=== PATIENT | male | born 1965 | race Caucasian/White ===

== ENCOUNTER 2018-01-18 11:01 | Inpatient (IN) | payer MEDICAID, OTHER ==
[~2018-01-18] VITALS: Ht 170.2 cm; Wt 91.7 kg
[2018-01-18 12:18] LABS: PH, VENOUS 7.349 pH (7.320-7.420)
[2018-01-18 12:20] LABS: FIO2 ROOM AIR %
[2018-01-18 12:22] LABS: BASOPHILS # (AUTO) 0.03 x10^3/uL (0-0.1); BASOPHILS % (AUTO) 0 % (0-1); EOSINOPHILS % (AUTO) 1 % (1-7); LYMPHOCYTES # (AUTO) 1.02 x10^3/uL (1-3.4); LYMPHOCYTES % (AUTO) 8 % (22-44); MD NO; MEAN CORPUSCULAR HEMOGLOBIN 31.1 pg (27.5-34.5); MEAN CORPUSCULAR HGB CONC 35.4 g/dL (33.2-36.2); MEAN CORPUSCULAR VOLUME 87.9 fL (81-97); MEAN PLATELET VOLUME 9.9 fL (7.4-10.4); MONOCYTES # (AUTO) 0.62 x10^3/uL (0.2-0.8); MONOCYTES % (AUTO) 5 % (2-9); NEUTROPHILS # (AUTO) 11.85 x10^3/uL (1.8-6.8); NEUTROPHILS % (AUTO) 87 % (42-75); PLATELET COUNT 261 x10^3/uL (130-400); RED BLOOD COUNT 4.39 x10^6/uL (4.38-5.82); RED CELL DISTRIBUTION WIDTH 14.1 % (9.4-14.8)
[2018-01-18 12:29] LABS: ALANINE AMINOTRANSFERASE 15 U/L (12-78); ALBUMIN 3.1 g/dL (3.4-5.0); ANION GAP 9 mmol/L (5-15); CALCIUM 8.9 mg/dL (8.5-10.1); CHLORIDE 105 mmol/L (98-107); CREATININE 2.53 mg/dL (0.7-1.3)
[2018-01-18 12:31] LABS: ALKALINE PHOSPHATASE 141 U/L (45-117); BILIRUBIN,TOTAL 0.6 mg/dL (0.2-1.0); TOTAL PROTEIN 8.5 g/dL (6.4-8.2)
[2018-01-18 12:58] LABS: ACETONE, SERUM Negative (Negative)
[2018-01-18] MEDS ORDERED: SODIUM CHLORIDE FLUSH 10ML SYR IVF PRN (13:00)
[2018-01-18] MEDS ORDERED: CEFTRIAXONE PMX 1GM/50ML 50 ML IVPB ONE (13:00)
[2018-01-18] MEDS ORDERED: CEFTRIAXONE PMX 1GM/50ML 50 ML ONE (13:24)
[2018-01-18] MEDS ORDERED: ATOR40TA78 PO (14:11)
[2018-01-18] MEDS ORDERED: AMLO5TAB2 PO (14:11)
[2018-01-18] MEDS ORDERED: LOSA50TA6 PO (14:11)
[2018-01-18] MEDS ORDERED: ESOM20CA PO (14:11)
[2018-01-18] MEDS ORDERED: ONDANSETRON 2MG/ML, 2ML ONE (15:59)
[2018-01-18] MEDS ORDERED: MORPHINE SULFATE 4 MG/ML, 1ML ONE (15:59)
[2018-01-18] MEDS ORDERED: ONDANSETRON 2MG/ML, 2ML IVPush ONE (16:00)
[2018-01-18] MEDS ORDERED: MORPHINE SULFATE 4 MG/ML, 1ML IVPush PRN (16:00)
[2018-01-18] MEDS ORDERED: hydrALAzine 20 MG/ML, 1ML IVPush PRN (16:30)
[2018-01-18] MEDS ORDERED: ONDANSETRON 2MG/ML, 2ML IVPush PRN (16:30)
[2018-01-18] MEDS ORDERED: ACETAMINOPHEN 325 MG TABLET PO PRN (16:30)
[2018-01-18 17:16] LABS: HCT (SEDRATE) 38.6 % (39.2-51.8)
[2018-01-18 17:36] LABS: HEMOGLOBIN A1C 11.3 % (4.2-6.3)
[2018-01-18] MEDS: SODIUM CHLORIDE 0.9% 1,000 ML IV SCH (17:52)
[2018-01-18] MEDS: HEPARIN 5,000 UNITS/ML, 1ML SQ SCH (18:00)
[2018-01-18] MEDS: OXYcodone IR 5MG TABLET PO PRN (18:08)
[2018-01-18] MEDS: INSULIN LISPRO 100 UNITS/ML, PEN SQ-INSULIN SCH ×2 (18:36→21:15)
[2018-01-18] MEDS: AMPICILLIN/SULBACTAM 3 GM in SODIUM CHLORIDE 0.9% 100 ML IV SCH (18:36)
[2018-01-18 19:19] VITALS: BP 150/87
[2018-01-18] MEDS: ATORVASTATIN 40 MG TABLET PO SCH (21:08)
[2018-01-18 22:24] LABS: CHLORIDE,URINE RANDOM 43 mmol/L; POTASSIUM,URINE RANDOM 36 mmol/L; SODIUM,URINE RANDOM 30 mmol/L
[2018-01-18 22:52] LABS: OSMOLALITY,URINE 498 mOsm/kg (500-850)
[2018-01-19] MEDS: HEPARIN 5,000 UNITS/ML, 1ML SQ SCH ×3 (01:42→17:36)
[2018-01-19 01:54] VITALS: BP 114/74
[2018-01-19] MEDS: SODIUM CHLORIDE 0.9% 1,000 ML IV SCH (03:36)
[2018-01-19 04:55] LABS: MEAN CORPUSCULAR HEMOGLOBIN 29.3 pg (27.5-34.5); MEAN CORPUSCULAR HGB CONC 33.2 g/dL (33.2-36.2); MEAN CORPUSCULAR VOLUME 88.1 fL (81-97); MEAN PLATELET VOLUME 10.1 fL (7.4-10.4); PLATELET COUNT 240 x10^3/uL (130-400); RED BLOOD COUNT 3.84 x10^6/uL (4.38-5.82); RED CELL DISTRIBUTION WIDTH 13.7 % (9.4-14.8)
[2018-01-19 05:02] LABS: ANION GAP 8 mmol/L (5-15); CALCIUM 8.2 mg/dL (8.5-10.1); CHLORIDE 106 mmol/L (98-107); CHOLESTEROL, TOTAL 157 mg/dL (140-239); CREATININE 2.46 mg/dL (0.7-1.3); TRIGLYCERIDES 108 mg/dL (50-200); VLDL CHOLESTEROL 22 mg/dL (0-25)
[2018-01-19 05:05] LABS: CHOL/HDL RATIO 4.6; HDL CHOL % 22 % (26-37); HDL CHOLESTEROL (DIRECT) 34 mg/dL (40-60); LDL CHOLESTEROL,CALCULATED 101 mg/dL (54-169)
[2018-01-19 05:39] LABS: BASOPHILS # (AUTO) 0.02 x10^3/uL (0-0.1); BASOPHILS % (AUTO) 0 % (0-1); EOSINOPHILS # (AUTO) 0.06 x10^3/uL (0-0.4); EOSINOPHILS % (AUTO) 0 % (1-7); LYMPHOCYTES # (AUTO) 1.52 x10^3/uL (1-3.4); LYMPHOCYTES % (AUTO) 9 % (22-44); MD SCAN; MONOCYTES % (AUTO) 9 % (2-9); NEUTROPHILS # (AUTO) 13.27 x10^3/uL (1.8-6.8); NEUTROPHILS % (AUTO) 81 % (42-75)
[2018-01-19] MEDS: AMPICILLIN/SULBACTAM 3 GM in SODIUM CHLORIDE 0.9% 100 ML IV SCH (06:11)
[2018-01-19] MEDS: INSULIN LISPRO 100 UNITS/ML, PEN SQ-INSULIN SCH ×4 (07:04→21:25)
[2018-01-19 07:30] VITALS: BP 122/70
[2018-01-19] MEDS: TEMPLATE NON-FORMULARY MED. (Esomeprazole Magnesium** (Nexium**) 20 MG) PO SCH (08:07)
[2018-01-19] MEDS: LOSARTAN 50MG TABLET PO SCH (09:03)
[2018-01-19] MEDS: AMLODIPINE 5 MG TABLET PO SCH (09:03)
[2018-01-19] MEDS: OXYcodone IR 5MG TABLET PO PRN (11:46)
[2018-01-19] MEDS: PIPERACILLIN/TAZO/PMX 3.375GM 50 ML IV SCH ×2 (12:09→20:51)
[2018-01-19 13:02] VITALS: BP 126/76
[2018-01-19] MEDS ORDERED: FENTANYL PF 100 MCG/2ML ONE (18:15)
[2018-01-19] MEDS ORDERED: PROPOFOL 10 MG/ML, 20ML ONE (18:23)
[2018-01-19] MEDS ORDERED: SUCCINYLCHOLINE 20 MG/ML, 10ML ONE (18:23)
[2018-01-19] MEDS ORDERED: METOCLOPRAMIDE 5 MG/ML, 2ML ONE (18:23)
[2018-01-19] MEDS ORDERED: ONDANSETRON 2MG/ML, 2ML ONE (18:23)
[2018-01-19] MEDS ORDERED: ROCURONIUM 10 MG/ML,10ML ONE (18:23)
[2018-01-19] MEDS ORDERED: OXYcodone 5 MG/5 ML ORAL.SOL UDC PO PRN (19:00)
[2018-01-19] MEDS ORDERED: hydrALAzine 20 MG/ML, 1ML IV PRN (19:00)
[2018-01-19] MEDS ORDERED: LABETALOL 5MG/ML, 20ML IV PRN (19:00)
[2018-01-19] MEDS ORDERED: FENTANYL PF 100 MCG/2ML IV PRN (19:00)
[2018-01-19] MEDS ORDERED: ONDANSETRON 2MG/ML, 2ML IVPush PRN (19:00)
[2018-01-19] MEDS ORDERED: ACETAMINOPHEN 325 MG TABLET PO PRN (19:00)
[2018-01-19] MEDS ORDERED: PROMETHAZINE 12.5 MG SUPP PR PRN (19:00)
[2018-01-19] MEDS ORDERED: HYDROmorphone 1 MG/ML, 1ML IV PRN (19:00)
[2018-01-19] MEDS ORDERED: morphine SULFATE 10 MG/ML, 1ML IV PRN (19:00)
[2018-01-19] MEDS ORDERED: ACETAMINOPHEN 650 MG/20.3 ML UDC ONE (19:11)
[2018-01-19] MEDS ORDERED: OXYcodone 5 MG/5 ML ORAL.SOL UDC ONE (19:11)
[2018-01-19 20:03] VITALS: BP 124/74
[2018-01-19] MEDS: ATORVASTATIN 40 MG TABLET PO SCH (20:51)
[2018-01-19] MEDS: INSULIN GLARGINE 100 UNITS/ML, PEN SQ-INSULIN SCH (21:25)
[2018-01-20 01:13] VITALS: BP 127/80
[2018-01-20] MEDS: HEPARIN 5,000 UNITS/ML, 1ML SQ SCH ×3 (01:45→17:29)
[2018-01-20] MEDS: PIPERACILLIN/TAZO/PMX 3.375GM 50 ML IV SCH ×3 (05:17→21:39)
[2018-01-20 05:57] LABS: BASOPHILS # (AUTO) 0.03 x10^3/uL (0-0.1); BASOPHILS % (AUTO) 0 % (0-1); EOSINOPHILS # (AUTO) 0.17 x10^3/uL (0-0.4); EOSINOPHILS % (AUTO) 1 % (1-7); LYMPHOCYTES # (AUTO) 1.58 x10^3/uL (1-3.4); LYMPHOCYTES % (AUTO) 13 % (22-44); MD NO; MEAN CORPUSCULAR HEMOGLOBIN 29.8 pg (27.5-34.5); MEAN CORPUSCULAR HGB CONC 33.8 g/dL (33.2-36.2); MEAN CORPUSCULAR VOLUME 88.4 fL (81-97); MEAN PLATELET VOLUME 9.4 fL (7.4-10.4); MONOCYTES # (AUTO) 1.03 x10^3/uL (0.2-0.8); MONOCYTES % (AUTO) 9 % (2-9); NEUTROPHILS # (AUTO) 9.37 x10^3/uL (1.8-6.8); NEUTROPHILS % (AUTO) 77 % (42-75); PLATELET COUNT 243 x10^3/uL (130-400); RED BLOOD COUNT 3.73 x10^6/uL (4.38-5.82); RED CELL DISTRIBUTION WIDTH 13.9 % (9.4-14.8)
[2018-01-20 06:06] LABS: ANION GAP 9 mmol/L (5-15); CALCIUM 8.4 mg/dL (8.5-10.1); CHLORIDE 107 mmol/L (98-107)
[2018-01-20 06:10] LABS: CREATININE 2.25 mg/dL (0.7-1.3)
[2018-01-20 06:48] VITALS: BP 133/77
[2018-01-20] MEDS: INSULIN LISPRO 100 UNITS/ML, PEN SQ-INSULIN SCH ×4 (07:00→21:39)
[2018-01-20] MEDS ORDERED: AMOX1TAB64 PO (07:41)
[2018-01-20] MEDS ORDERED: ACET325T14 PO (07:41)
[2018-01-20] MEDS: AMLODIPINE 5 MG TABLET PO SCH (08:11)
[2018-01-20] MEDS: LOSARTAN 50MG TABLET PO SCH (08:12)
[2018-01-20] MEDS: TEMPLATE NON-FORMULARY MED. (Esomeprazole Magnesium** (Nexium**) 20 MG) PO SCH (08:12)
[2018-01-20] MEDS: DOCUSATE 100 MG CAPSULE PO PRN (08:21)
[2018-01-20 12:26] VITALS: BP 128/72
[2018-01-20 19:38] VITALS: BP 142/79
[2018-01-20] MEDS: ATORVASTATIN 40 MG TABLET PO SCH (21:39)
[2018-01-20] MEDS: INSULIN GLARGINE 100 UNITS/ML, PEN SQ-INSULIN SCH (21:40)
[2018-01-21] MEDS: HEPARIN 5,000 UNITS/ML, 1ML SQ SCH ×3 (02:05→17:16)
[2018-01-21] MEDS: OXYcodone IR 5MG TABLET PO PRN ×4 (02:05→23:42)
[2018-01-21 02:10] VITALS: BP 142/77
[2018-01-21] MEDS: PIPERACILLIN/TAZO/PMX 3.375GM 50 ML IV SCH ×3 (05:06→21:23)
[2018-01-21 06:37] VITALS: BP 149/84
[2018-01-21] MEDS: INSULIN LISPRO 100 UNITS/ML, PEN SQ-INSULIN SCH ×4 (08:32→21:23)
[2018-01-21] MEDS: TEMPLATE NON-FORMULARY MED. (Esomeprazole Magnesium** (Nexium**) 20 MG) PO SCH (08:32)
[2018-01-21] MEDS: LOSARTAN 50MG TABLET PO SCH (08:33)
[2018-01-21] MEDS: AMLODIPINE 5 MG TABLET PO SCH (08:33)
[2018-01-21 15:37] VITALS: BP 130/75
[2018-01-21] MEDS: DOCUSATE 100 MG CAPSULE PO PRN (17:42)
[2018-01-21 19:18] VITALS: BP 145/79
[2018-01-21] MEDS: ATORVASTATIN 40 MG TABLET PO SCH (21:23)
[2018-01-21] MEDS: INSULIN GLARGINE 100 UNITS/ML, PEN SQ-INSULIN SCH (21:24)
[2018-01-22 01:42] VITALS: BP 118/64
[2018-01-22] MEDS: HEPARIN 5,000 UNITS/ML, 1ML SQ SCH ×3 (02:28→18:43)
[2018-01-22] MEDS: PIPERACILLIN/TAZO/PMX 3.375GM 50 ML IV SCH ×3 (04:56→23:01)
[2018-01-22] MEDS: INSULIN LISPRO 100 UNITS/ML, PEN SQ-INSULIN SCH ×4 (07:00→20:06)
[2018-01-22] MEDS: AMLODIPINE 5 MG TABLET PO SCH (07:54)
[2018-01-22] MEDS: LOSARTAN 50MG TABLET PO SCH (07:54)
[2018-01-22] MEDS: TEMPLATE NON-FORMULARY MED. (Esomeprazole Magnesium** (Nexium**) 20 MG) PO SCH (07:54)
[2018-01-22 08:53] VITALS: BP 126/71
[2018-01-22] MEDS: DOCUSATE 100 MG CAPSULE PO PRN (10:44)
[2018-01-22 11:59] VITALS: BP 128/80
[2018-01-22 19:06] VITALS: BP 154/86
[2018-01-22] MEDS: ATORVASTATIN 40 MG TABLET PO SCH (20:05)
[2018-01-22] MEDS: INSULIN GLARGINE 100 UNITS/ML, PEN SQ-INSULIN SCH (20:06)
[2018-01-23] MEDS: HEPARIN 5,000 UNITS/ML, 1ML SQ SCH ×3 (02:36→18:21)
[2018-01-23 02:38] VITALS: BP 163/94
[2018-01-23 07:00] VITALS: BP 139/89
[2018-01-23] MEDS: PIPERACILLIN/TAZO/PMX 3.375GM 50 ML IV SCH ×3 (08:01→23:16)
[2018-01-23] MEDS: INSULIN LISPRO 100 UNITS/ML, PEN SQ-INSULIN SCH ×4 (08:01→20:35)
[2018-01-23] MEDS: LOSARTAN 50MG TABLET PO SCH (08:02)
[2018-01-23] MEDS: AMLODIPINE 5 MG TABLET PO SCH (08:02)
[2018-01-23] MEDS: OXYcodone IR 5MG TABLET PO PRN ×2 (08:12→18:48)
[2018-01-23] MEDS: TEMPLATE NON-FORMULARY MED. (Esomeprazole Magnesium** (Nexium**) 20 MG) PO SCH (08:16)
[2018-01-23] MEDS ORDERED: MAGNESIUM CITRATE 300ML ORAL SOL PO ONE (12:00)
[2018-01-23 12:45] VITALS: BP 134/84
[2018-01-23 18:34] VITALS: BP 122/78
[2018-01-23] MEDS: SENNA/DOCUSATE TABLET PO SCH (20:34)
[2018-01-23] MEDS: INSULIN GLARGINE 100 UNITS/ML, PEN SQ-INSULIN SCH (20:34)
[2018-01-23] MEDS: ATORVASTATIN 40 MG TABLET PO SCH (20:34)
[2018-01-24 01:19] VITALS: BP 147/84
[2018-01-24] MEDS: HEPARIN 5,000 UNITS/ML, 1ML SQ SCH ×3 (02:06→20:19)
[2018-01-24] MEDS: PIPERACILLIN/TAZO/PMX 3.375GM 50 ML IV SCH (06:35)
[2018-01-24 06:52] VITALS: BP 157/84
[2018-01-24] MEDS: INSULIN LISPRO 100 UNITS/ML, PEN SQ-INSULIN SCH ×4 (07:00→20:30)
[2018-01-24] MEDS: TEMPLATE NON-FORMULARY MED. (Esomeprazole Magnesium** (Nexium**) 20 MG) PO SCH (09:00)
[2018-01-24] MEDS: POLYETHYLENE GLYCOL 17 GM PACKET PO SCH (09:00)
[2018-01-24] MEDS: LOSARTAN 50MG TABLET PO SCH (09:34)
[2018-01-24] MEDS: SENNA/DOCUSATE TABLET PO SCH ×2 (09:34→20:19)
[2018-01-24] MEDS: AMLODIPINE 5 MG TABLET PO SCH (09:34)
[2018-01-24] MEDS: OXYcodone IR 5MG TABLET PO PRN (11:01)
[2018-01-24 12:32] VITALS: BP 152/87
[2018-01-24] MEDS ORDERED: PHARMACY INSTRUCTION MC PRN (14:30)
[2018-01-24] MEDS: CEFTRIAXONE 2 GM in SODIUM CHLORIDE 0.9% 50 ML IV SCH (15:39)
[2018-01-24 18:43] VITALS: BP 146/85
[2018-01-24] MEDS: ATORVASTATIN 40 MG TABLET PO SCH (20:19)
[2018-01-24] MEDS: INSULIN GLARGINE 100 UNITS/ML, PEN SQ-INSULIN SCH (20:30)
[2018-01-25 03:38] VITALS: BP 150/90
[2018-01-25] MEDS: HEPARIN 5,000 UNITS/ML, 1ML SQ SCH ×3 (03:42→20:51)
[2018-01-25 06:35] VITALS: BP 135/78
[2018-01-25] MEDS: INSULIN LISPRO 100 UNITS/ML, PEN SQ-INSULIN SCH ×4 (07:00→22:57)
[2018-01-25] MEDS: TEMPLATE NON-FORMULARY MED. (Esomeprazole Magnesium** (Nexium**) 20 MG) PO SCH (09:00)
[2018-01-25] MEDS: POLYETHYLENE GLYCOL 17 GM PACKET PO SCH (09:00)
[2018-01-25] MEDS: SENNA/DOCUSATE TABLET PO SCH ×2 (10:02→22:57)
[2018-01-25] MEDS: AMLODIPINE 5 MG TABLET PO SCH (10:02)
[2018-01-25] MEDS: LOSARTAN 50MG TABLET PO SCH (10:02)
[2018-01-25] MEDS: OXYcodone IR 5MG TABLET PO PRN (10:33)
[2018-01-25 12:56] VITALS: BP 151/82
[2018-01-25] MEDS: CEFTRIAXONE 2 GM in SODIUM CHLORIDE 0.9% 50 ML IV SCH (14:40)
[2018-01-25 20:00] VITALS: BP 148/83
[2018-01-25] MEDS: INSULIN GLARGINE 100 UNITS/ML, PEN SQ-INSULIN SCH (22:56)
[2018-01-25] MEDS: ATORVASTATIN 40 MG TABLET PO SCH (22:57)
[2018-01-26 02:00] VITALS: BP 125/73
[2018-01-26] MEDS: HEPARIN 5,000 UNITS/ML, 1ML SQ SCH ×3 (04:29→20:04)
[2018-01-26 06:50] VITALS: BP 150/82
[2018-01-26] MEDS: INSULIN LISPRO 100 UNITS/ML, PEN SQ-INSULIN SCH ×4 (07:00→21:27)
[2018-01-26] MEDS: POLYETHYLENE GLYCOL 17 GM PACKET PO SCH (08:16)
[2018-01-26] MEDS: LOSARTAN 50MG TABLET PO SCH (08:16)
[2018-01-26] MEDS: AMLODIPINE 5 MG TABLET PO SCH (08:16)
[2018-01-26] MEDS: SENNA/DOCUSATE TABLET PO SCH ×2 (08:16→21:28)
[2018-01-26] MEDS: TEMPLATE NON-FORMULARY MED. (Esomeprazole Magnesium** (Nexium**) 20 MG) PO SCH (08:17)
[2018-01-26 13:04] VITALS: BP 133/79
[2018-01-26] MEDS: CEFTRIAXONE 2 GM in SODIUM CHLORIDE 0.9% 50 ML IV SCH (13:47)
[2018-01-26 18:36] VITALS: BP 130/81
[2018-01-26] MEDS: ATORVASTATIN 40 MG TABLET PO SCH (21:28)
[2018-01-26] MEDS: INSULIN GLARGINE 100 UNITS/ML, PEN SQ-INSULIN SCH (21:28)
[2018-01-27 01:36] VITALS: BP 130/79
[2018-01-27] MEDS: HEPARIN 5,000 UNITS/ML, 1ML SQ SCH ×3 (04:14→21:11)
[2018-01-27 04:27] LABS: BASOPHILS # (AUTO) 0.03 x10^3/uL (0-0.1); BASOPHILS % (AUTO) 0 % (0-1); EOSINOPHILS # (AUTO) 0.14 x10^3/uL (0-0.4); EOSINOPHILS % (AUTO) 1 % (1-7); LYMPHOCYTES # (AUTO) 1.79 x10^3/uL (1-3.4); LYMPHOCYTES % (AUTO) 17 % (22-44); MD NO; MEAN CORPUSCULAR HEMOGLOBIN 29.4 pg (27.5-34.5); MEAN CORPUSCULAR HGB CONC 33.2 g/dL (33.2-36.2); MEAN CORPUSCULAR VOLUME 88.5 fL (81-97); MEAN PLATELET VOLUME 8.9 fL (7.4-10.4); MONOCYTES # (AUTO) 0.86 x10^3/uL (0.2-0.8); MONOCYTES % (AUTO) 8 % (2-9); NEUTROPHILS # (AUTO) 7.57 x10^3/uL (1.8-6.8); NEUTROPHILS % (AUTO) 73 % (42-75); PLATELET COUNT 324 x10^3/uL (130-400); RED BLOOD COUNT 4.06 x10^6/uL (4.38-5.82); RED CELL DISTRIBUTION WIDTH 13.7 % (9.4-14.8)
[2018-01-27 04:36] LABS: ANION GAP 6 mmol/L (5-15); CHLORIDE 105 mmol/L (98-107); CREATININE 2.08 mg/dL (0.7-1.3)
[2018-01-27 06:34] VITALS: BP 137/83
[2018-01-27] MEDS: INSULIN LISPRO 100 UNITS/ML, PEN SQ-INSULIN SCH ×4 (07:27→21:18)
[2018-01-27] MEDS ORDERED: TRAZODONE 100MG TABLET PO PRN (08:30)
[2018-01-27] MEDS: TEMPLATE NON-FORMULARY MED. (Esomeprazole Magnesium** (Nexium**) 20 MG) PO SCH (09:00)
[2018-01-27] MEDS: POLYETHYLENE GLYCOL 17 GM PACKET PO SCH (09:00)
[2018-01-27] MEDS: SENNA/DOCUSATE TABLET PO SCH ×2 (09:00→21:11)
[2018-01-27] MEDS: AMLODIPINE 5 MG TABLET PO SCH (09:35)
[2018-01-27] MEDS: LOSARTAN 50MG TABLET PO SCH (09:35)
[2018-01-27] MEDS: OXYcodone IR 5MG TABLET PO PRN (11:29)
[2018-01-27 14:49] VITALS: BP 113/64
[2018-01-27] MEDS: CEFTRIAXONE 2 GM in SODIUM CHLORIDE 0.9% 50 ML IV SCH (15:34)
[2018-01-27 19:11] VITALS: BP 125/79
[2018-01-27] MEDS: ATORVASTATIN 40 MG TABLET PO SCH (21:11)
[2018-01-27] MEDS: INSULIN GLARGINE 100 UNITS/ML, PEN SQ-INSULIN SCH (21:18)
[2018-01-27] MEDS ORDERED: MAGNESIUM CITRATE 300ML ORAL SOL PO ONE (21:30)
[2018-01-28 00:58] VITALS: BP 129/78
[2018-01-28] MEDS: HEPARIN 5,000 UNITS/ML, 1ML SQ SCH ×3 (04:13→21:14)
[2018-01-28] MEDS: INSULIN LISPRO 100 UNITS/ML, PEN SQ-INSULIN SCH ×4 (07:00→21:11)
[2018-01-28 08:17] VITALS: BP 146/87
[2018-01-28] MEDS: POLYETHYLENE GLYCOL 17 GM PACKET PO SCH (09:00)
[2018-01-28] MEDS: SENNA/DOCUSATE TABLET PO SCH ×2 (09:00→21:11)
[2018-01-28] MEDS: TEMPLATE NON-FORMULARY MED. (Esomeprazole Magnesium** (Nexium**) 20 MG) PO SCH (09:00)
[2018-01-28] MEDS: AMLODIPINE 5 MG TABLET PO SCH (09:54)
[2018-01-28] MEDS: LOSARTAN 50MG TABLET PO SCH (09:54)
[2018-01-28] MEDS: CEFTRIAXONE 2 GM in SODIUM CHLORIDE 0.9% 50 ML IV SCH (14:57)
[2018-01-28 15:23] VITALS: BP 126/78
[2018-01-28 15:37] VITALS: BP 113/70
[2018-01-28 18:49] VITALS: BP 121/73
[2018-01-28] MEDS: ATORVASTATIN 40 MG TABLET PO SCH (21:11)
[2018-01-28] MEDS: INSULIN GLARGINE 100 UNITS/ML, PEN SQ-INSULIN SCH (21:12)
[2018-01-29 01:21] VITALS: BP 130/82
[2018-01-29] MEDS: HEPARIN 5,000 UNITS/ML, 1ML SQ SCH ×3 (04:12→20:12)
[2018-01-29 06:40] VITALS: BP 143/80
[2018-01-29] MEDS: INSULIN LISPRO 100 UNITS/ML, PEN SQ-INSULIN SCH ×4 (07:00→20:12)
[2018-01-29] MEDS: SENNA/DOCUSATE TABLET PO SCH ×2 (07:42→20:13)
[2018-01-29] MEDS: AMLODIPINE 5 MG TABLET PO SCH (07:42)
[2018-01-29] MEDS: POLYETHYLENE GLYCOL 17 GM PACKET PO SCH (07:42)
[2018-01-29] MEDS: TEMPLATE NON-FORMULARY MED. (Esomeprazole Magnesium** (Nexium**) 20 MG) PO SCH (07:42)
[2018-01-29] MEDS: LOSARTAN 50MG TABLET PO SCH (07:44)
[2018-01-29] MEDS: OXYcodone IR 5MG TABLET PO PRN (08:50)
[2018-01-29 12:53] VITALS: BP 125/75
[2018-01-29] MEDS: CEFTRIAXONE 2 GM in SODIUM CHLORIDE 0.9% 50 ML IV SCH (14:37)
[2018-01-29 19:00] VITALS: BP 123/78
[2018-01-29] MEDS: ATORVASTATIN 40 MG TABLET PO SCH (20:12)
[2018-01-29] MEDS: INSULIN GLARGINE 100 UNITS/ML, PEN SQ-INSULIN SCH (20:13)
[2018-01-30 01:30] VITALS: BP 138/84
[2018-01-30] MEDS: HEPARIN 5,000 UNITS/ML, 1ML SQ SCH ×3 (04:16→20:26)
[2018-01-30 05:09] LABS: BASOPHILS # (AUTO) 0.01 x10^3/uL (0-0.1); BASOPHILS % (AUTO) 0 % (0-1); CHLORIDE 106 mmol/L (98-107); EOSINOPHILS # (AUTO) 0.17 x10^3/uL (0-0.4); EOSINOPHILS % (AUTO) 2 % (1-7); LYMPHOCYTES # (AUTO) 1.55 x10^3/uL (1-3.4); LYMPHOCYTES % (AUTO) 17 % (22-44); MD NO; MEAN CORPUSCULAR HEMOGLOBIN 29.6 pg (27.5-34.5); MEAN CORPUSCULAR HGB CONC 33.8 g/dL (33.2-36.2); MEAN CORPUSCULAR VOLUME 87.4 fL (81-97); MEAN PLATELET VOLUME 9.9 fL (7.4-10.4); MONOCYTES # (AUTO) 0.77 x10^3/uL (0.2-0.8); MONOCYTES % (AUTO) 8 % (2-9); NEUTROPHILS # (AUTO) 6.64 x10^3/uL (1.8-6.8); NEUTROPHILS % (AUTO) 73 % (42-75); PLATELET COUNT 360 x10^3/uL (130-400); RED BLOOD COUNT 3.93 x10^6/uL (4.38-5.82); RED CELL DISTRIBUTION WIDTH 13.9 % (9.4-14.8)
[2018-01-30 05:30] LABS: ANION GAP 7 mmol/L (5-15); CALCIUM 8.7 mg/dL (8.5-10.1); CREATININE 2.05 mg/dL (0.7-1.3)
[2018-01-30 05:31] LABS: ALANINE AMINOTRANSFERASE 24 U/L (12-78); ALBUMIN 2.4 g/dL (3.4-5.0); ALKALINE PHOSPHATASE 92 U/L (45-117); BILIRUBIN,TOTAL 0.2 mg/dL (0.2-1.0); TOTAL PROTEIN 7.7 g/dL (6.4-8.2)
[2018-01-30 06:30] VITALS: BP 140/84
[2018-01-30] MEDS: INSULIN LISPRO 100 UNITS/ML, PEN SQ-INSULIN SCH ×4 (06:30→20:26)
[2018-01-30 06:44] LABS: HCT (SEDRATE) 34.3 % (39.2-51.8)
[2018-01-30] MEDS: SENNA/DOCUSATE TABLET PO SCH ×2 (09:00→20:27)
[2018-01-30] MEDS: POLYETHYLENE GLYCOL 17 GM PACKET PO SCH (09:00)
[2018-01-30] MEDS: TEMPLATE NON-FORMULARY MED. (Esomeprazole Magnesium** (Nexium**) 20 MG) PO SCH (09:00)
[2018-01-30] MEDS: LOSARTAN 50MG TABLET PO SCH (10:05)
[2018-01-30] MEDS: AMLODIPINE 5 MG TABLET PO SCH (10:05)
[2018-01-30] MEDS: CEFTRIAXONE 2 GM in SODIUM CHLORIDE 0.9% 50 ML IV SCH (14:27)
[2018-01-30 14:51] VITALS: BP 119/79
[2018-01-30] MEDS: MAGNESIUM CITRATE 300ML ORAL SOL PO PRN (16:53)
[2018-01-30 20:25] VITALS: BP 134/85
[2018-01-30] MEDS: ATORVASTATIN 40 MG TABLET PO SCH (20:26)
[2018-01-30] MEDS: INSULIN GLARGINE 100 UNITS/ML, PEN SQ-INSULIN SCH (20:26)
[2018-01-31 00:24] VITALS: BP 128/78
[2018-01-31] MEDS: HEPARIN 5,000 UNITS/ML, 1ML SQ SCH ×3 (04:08→20:29)
[2018-01-31 06:57] VITALS: BP 120/78
[2018-01-31] MEDS: INSULIN LISPRO 100 UNITS/ML, PEN SQ-INSULIN SCH ×4 (07:57→20:30)
[2018-01-31] MEDS: AMLODIPINE 5 MG TABLET PO SCH (08:29)
[2018-01-31] MEDS: TEMPLATE NON-FORMULARY MED. (Esomeprazole Magnesium** (Nexium**) 20 MG) PO SCH (08:29)
[2018-01-31] MEDS: LOSARTAN 50MG TABLET PO SCH (08:29)
[2018-01-31] MEDS: SENNA/DOCUSATE TABLET PO SCH ×2 (08:29→20:30)
[2018-01-31] MEDS: POLYETHYLENE GLYCOL 17 GM PACKET PO SCH (08:30)
[2018-01-31 12:18] VITALS: BP 148/92
[2018-01-31] MEDS: CEFTRIAXONE 2 GM in SODIUM CHLORIDE 0.9% 50 ML IV SCH (15:16)
[2018-01-31 18:35] VITALS: BP 107/69
[2018-01-31] MEDS: INSULIN GLARGINE 100 UNITS/ML, PEN SQ-INSULIN SCH (20:30)
[2018-01-31] MEDS: ATORVASTATIN 40 MG TABLET PO SCH (20:30)
[2018-02-01 00:55] VITALS: BP 135/76
[2018-02-01] MEDS: HEPARIN 5,000 UNITS/ML, 1ML SQ SCH ×3 (04:35→20:20)
[2018-02-01 06:32] VITALS: BP 151/95
[2018-02-01] MEDS: TEMPLATE NON-FORMULARY MED. (Esomeprazole Magnesium** (Nexium**) 20 MG) PO SCH (07:56)
[2018-02-01] MEDS: INSULIN LISPRO 100 UNITS/ML, PEN SQ-INSULIN SCH ×4 (07:56→20:21)
[2018-02-01] MEDS: LOSARTAN 50MG TABLET PO SCH (07:57)
[2018-02-01] MEDS: AMLODIPINE 5 MG TABLET PO SCH (07:57)
[2018-02-01] MEDS: SENNA/DOCUSATE TABLET PO SCH ×2 (07:57→20:20)
[2018-02-01] MEDS: POLYETHYLENE GLYCOL 17 GM PACKET PO SCH (07:57)
[2018-02-01 12:00] VITALS: BP 137/93
[2018-02-01] MEDS: CEFTRIAXONE 2 GM in SODIUM CHLORIDE 0.9% 50 ML IV SCH (14:34)
[2018-02-01] MEDS: AMPICILLIN/SULBACTAM 3 GM in SODIUM CHLORIDE 0.9% 100 ML IV SCH ×2 (17:40→22:19)
[2018-02-01 18:45] VITALS: BP 124/76
[2018-02-01] MEDS: ATORVASTATIN 40 MG TABLET PO SCH (20:20)
[2018-02-01] MEDS: INSULIN GLARGINE 100 UNITS/ML, PEN SQ-INSULIN SCH (20:21)
[2018-02-02 00:49] VITALS: BP 121/75
[2018-02-02] MEDS: AMPICILLIN/SULBACTAM 3 GM in SODIUM CHLORIDE 0.9% 100 ML IV SCH ×4 (04:19→22:36)
[2018-02-02] MEDS: HEPARIN 5,000 UNITS/ML, 1ML SQ SCH ×3 (04:19→20:32)
[2018-02-02 06:37] VITALS: BP 136/80
[2018-02-02] MEDS: INSULIN LISPRO 100 UNITS/ML, PEN SQ-INSULIN SCH ×4 (07:40→20:33)
[2018-02-02] MEDS: TEMPLATE NON-FORMULARY MED. (Esomeprazole Magnesium** (Nexium**) 20 MG) PO SCH (07:41)
[2018-02-02] MEDS: SENNA/DOCUSATE TABLET PO SCH ×2 (09:07→20:32)
[2018-02-02] MEDS: AMLODIPINE 5 MG TABLET PO SCH (09:08)
[2018-02-02] MEDS: POLYETHYLENE GLYCOL 17 GM PACKET PO SCH (09:08)
[2018-02-02] MEDS: LOSARTAN 50MG TABLET PO SCH (09:08)
[2018-02-02 12:39] VITALS: BP 124/77
[2018-02-02 19:20] VITALS: BP 133/81
[2018-02-02] MEDS: INSULIN GLARGINE 100 UNITS/ML, PEN SQ-INSULIN SCH (20:32)
[2018-02-02] MEDS: ATORVASTATIN 40 MG TABLET PO SCH (20:32)
[2018-02-03 01:18] VITALS: BP 127/78
[2018-02-03] MEDS: AMPICILLIN/SULBACTAM 3 GM in SODIUM CHLORIDE 0.9% 100 ML IV SCH ×3 (04:06→20:29)
[2018-02-03] MEDS: HEPARIN 5,000 UNITS/ML, 1ML SQ SCH ×3 (04:06→20:30)
[2018-02-03 04:35] LABS: BASOPHILS # (AUTO) 0.04 x10^3/uL (0-0.1); BASOPHILS % (AUTO) 1 % (0-1); EOSINOPHILS # (AUTO) 0.14 x10^3/uL (0-0.4); EOSINOPHILS % (AUTO) 2 % (1-7); LYMPHOCYTES # (AUTO) 1.59 x10^3/uL (1-3.4); LYMPHOCYTES % (AUTO) 23 % (22-44); MD NO; MEAN CORPUSCULAR HEMOGLOBIN 29.3 pg (27.5-34.5); MEAN CORPUSCULAR HGB CONC 33.2 g/dL (33.2-36.2); MEAN CORPUSCULAR VOLUME 88.3 fL (81-97); MEAN PLATELET VOLUME 9.4 fL (7.4-10.4); MONOCYTES # (AUTO) 0.63 x10^3/uL (0.2-0.8); MONOCYTES % (AUTO) 9 % (2-9); NEUTROPHILS # (AUTO) 4.57 x10^3/uL (1.8-6.8); NEUTROPHILS % (AUTO) 66 % (42-75); PLATELET COUNT 395 x10^3/uL (130-400); RED BLOOD COUNT 3.94 x10^6/uL (4.38-5.82); RED CELL DISTRIBUTION WIDTH 14.1 % (9.4-14.8)
[2018-02-03 04:38] LABS: ANION GAP 5 mmol/L (5-15); CALCIUM 8.7 mg/dL (8.5-10.1); CHLORIDE 105 mmol/L (98-107)
[2018-02-03] MEDS: INSULIN LISPRO 100 UNITS/ML, PEN SQ-INSULIN SCH ×4 (07:00→20:42)
[2018-02-03 07:24] VITALS: BP 128/76
[2018-02-03] MEDS: SENNA/DOCUSATE TABLET PO SCH ×2 (08:23→20:30)
[2018-02-03] MEDS: AMLODIPINE 5 MG TABLET PO SCH (08:23)
[2018-02-03] MEDS: POLYETHYLENE GLYCOL 17 GM PACKET PO SCH (08:23)
[2018-02-03] MEDS: LOSARTAN 50MG TABLET PO SCH (08:23)
[2018-02-03] MEDS: TEMPLATE NON-FORMULARY MED. (Esomeprazole Magnesium** (Nexium**) 20 MG) PO SCH (08:24)
[2018-02-03] MEDS: INSULIN GLARGINE 100 UNITS/ML, PEN SQ-INSULIN SCH ×2 (08:29→20:42)
[2018-02-03 13:30] VITALS: BP 135/78
[2018-02-03 19:00] VITALS: BP 139/82
[2018-02-03] MEDS: ATORVASTATIN 40 MG TABLET PO SCH (20:30)
[2018-02-04 01:01] VITALS: BP 137/78
[2018-02-04] MEDS: HEPARIN 5,000 UNITS/ML, 1ML SQ SCH ×3 (03:51→20:11)
[2018-02-04] MEDS: AMPICILLIN/SULBACTAM 3 GM in SODIUM CHLORIDE 0.9% 100 ML IV SCH ×3 (03:51→20:05)
[2018-02-04] MEDS: ASPIRIN 81 MG TABLET EC PO SCH (05:48)
[2018-02-04] MEDS: INSULIN LISPRO 100 UNITS/ML, PEN SQ-INSULIN SCH ×4 (07:00→20:17)
[2018-02-04] MEDS: TEMPLATE NON-FORMULARY MED. (Esomeprazole Magnesium** (Nexium**) 20 MG) PO SCH (09:00)
[2018-02-04] MEDS: POLYETHYLENE GLYCOL 17 GM PACKET PO SCH (09:00)
[2018-02-04] MEDS: AMLODIPINE 5 MG TABLET PO SCH (09:13)
[2018-02-04] MEDS: LOSARTAN 50MG TABLET PO SCH (09:14)
[2018-02-04] MEDS: MAGNESIUM CITRATE 300ML ORAL SOL PO PRN (09:14)
[2018-02-04] MEDS: SENNA/DOCUSATE TABLET PO SCH ×2 (09:14→20:09)
[2018-02-04] MEDS: INSULIN GLARGINE 100 UNITS/ML, PEN SQ-INSULIN SCH ×2 (09:18→20:16)
[2018-02-04 09:23] VITALS: BP 146/90
[2018-02-04 14:26] VITALS: BP 135/83
[2018-02-04 18:43] VITALS: BP 129/74
[2018-02-04] MEDS: ATORVASTATIN 40 MG TABLET PO SCH (20:09)
[2018-02-05 03:13] VITALS: BP 121/74
[2018-02-05] MEDS: AMPICILLIN/SULBACTAM 3 GM in SODIUM CHLORIDE 0.9% 100 ML IV SCH ×3 (03:46→20:12)
[2018-02-05] MEDS: HEPARIN 5,000 UNITS/ML, 1ML SQ SCH ×3 (03:50→20:13)
[2018-02-05] MEDS: ASPIRIN 81 MG TABLET EC PO SCH (06:32)
[2018-02-05] MEDS: INSULIN LISPRO 100 UNITS/ML, PEN SQ-INSULIN SCH ×4 (07:00→20:21)
[2018-02-05 08:50] VITALS: BP 119/79
[2018-02-05] MEDS: TEMPLATE NON-FORMULARY MED. (Esomeprazole Magnesium** (Nexium**) 20 MG) PO SCH (09:00)
[2018-02-05] MEDS: INSULIN GLARGINE 100 UNITS/ML, PEN SQ-INSULIN SCH (09:00)
[2018-02-05] MEDS: SENNA/DOCUSATE TABLET PO SCH ×2 (09:21→20:22)
[2018-02-05] MEDS: AMLODIPINE 5 MG TABLET PO SCH (09:21)
[2018-02-05] MEDS: LOSARTAN 50MG TABLET PO SCH (09:22)
[2018-02-05] MEDS: POLYETHYLENE GLYCOL 17 GM PACKET PO SCH (09:22)
[2018-02-05 14:05] VITALS: BP 129/76
[2018-02-05 18:59] VITALS: BP 128/75
[2018-02-05] MEDS: ATORVASTATIN 40 MG TABLET PO SCH (20:12)
[2018-02-05] MEDS ORDERED: INSULIN GLARGINE 100 UNITS/ML, PEN SQ-INSULIN SCH (21:00)
[2018-02-06 00:29] VITALS: BP 125/74
[2018-02-06] MEDS: AMPICILLIN/SULBACTAM 3 GM in SODIUM CHLORIDE 0.9% 100 ML IV SCH ×2 (03:28→11:09)
[2018-02-06] MEDS: HEPARIN 5,000 UNITS/ML, 1ML SQ SCH ×2 (03:28→12:17)
[2018-02-06] MEDS: ASPIRIN 81 MG TABLET EC PO SCH (05:59)
[2018-02-06] MEDS: INSULIN LISPRO 100 UNITS/ML, PEN SQ-INSULIN SCH ×2 (07:00→11:13)
[2018-02-06] MEDS ORDERED: INSULIN GLARGINE 100 UNITS/ML, PEN SQ-INSULIN SCH (07:30)
[2018-02-06 08:05] VITALS: BP 148/96
[2018-02-06] MEDS: TEMPLATE NON-FORMULARY MED. (Esomeprazole Magnesium** (Nexium**) 20 MG) PO SCH (09:00)
[2018-02-06] MEDS: POLYETHYLENE GLYCOL 17 GM PACKET PO SCH (09:00)
[2018-02-06] MEDS: SENNA/DOCUSATE TABLET PO SCH (09:05)
[2018-02-06] MEDS: LOSARTAN 50MG TABLET PO SCH (09:05)
[2018-02-06] MEDS: AMLODIPINE 5 MG TABLET PO SCH (09:05)
[2018-02-06 12:31] VITALS: BP 130/81
[2018-02-06] MEDS ORDERED: AMOX1TAB64 PO (14:11)
[2018-02-06] MEDS ORDERED: SIMV20TA PO (14:15)
[2018-02-06] MEDS ORDERED: LACT1CAP24 PO (14:15)
[2018-02-06] MEDS ORDERED: ASPI-621 PO (14:21)
[2018-02-06] MEDS ORDERED: INSU100I13 SQ-INSULIN (14:21)
== END 2018-02-06 15:16 | disposition home or self-care (01) | DRG 853 ==
LOC: ED 12:57 → EDIP 12:58 → ED 13:10 → 3NW 14:38 → EDIP 14:45 → 3NW 14:49 → EDIP 15:04 → 3NW 17:27
PROVIDERS: ADMIT Internal Medicine; ATTEND Internal Medicine
PROC: 0Y6X0Z0 Detachment at Right 5th Toe, Complete, Open Approach (ICD-10-PCS; 2018-01-19)
PROC: 0JBQ0ZZ Excision of Right Foot Subcutaneous Tissue and Fascia, Open Approach (ICD-10-PCS; principal; 2018-01-19 19:15)
DX: A41.9 Sepsis, unspecified organism (principal); E43 Unspecified severe protein-calorie malnutrition; E11.22 Type 2 diabetes mellitus with diabetic chronic kidney disease; N18.4 Chronic kidney disease, stage 4 (severe); N17.9 Acute kidney failure, unspecified; L03.115 Cellulitis of right lower limb; E11.40 Type 2 diabetes mellitus with diabetic neuropathy, unspecified; E11.319 Type 2 diabetes mellitus with unspecified diabetic retinopathy without macular edema; E11.51 Type 2 diabetes mellitus with diabetic peripheral angiopathy without gangrene; E11.621 Type 2 diabetes mellitus with foot ulcer; E11.628 Type 2 diabetes mellitus with other skin complications; E11.65 Type 2 diabetes mellitus with hyperglycemia; E78.5 Hyperlipidemia, unspecified; H40.9 Unspecified glaucoma; S92.411A Displaced fracture of proximal phalanx of right great toe, initial encounter for closed fracture; I12.9 Hypertensive chronic kidney disease with stage 1 through stage 4 chronic kidney disease, or unspecified chronic kidney disease; K21.9 Gastro-esophageal reflux disease without esophagitis; L97.509 Non-pressure chronic ulcer of other part of unspecified foot with unspecified severity; S92.301A Fracture of unspecified metatarsal bone(s), right foot, initial encounter for closed fracture; Z79.4 Long term (current) use of insulin; Z83.3 Family history of diabetes mellitus; Z87.891 Personal history of nicotine dependence; Z89.421 Acquired absence of other right toe(s); Z79.899 Other long term (current) drug therapy; Z79.82 Long term (current) use of aspirin; Z68.31 Body mass index [BMI] 31.0-31.9, adult
CPT/HCPCS: 36415; 80048; 80053; 80061; 82010; 82436; 82570; 82803; 82962; 83036; 83605; 83735; 83935; 84100; 84133; 84300; 85025; 85651; 86140; 87040; 87070; 87075; 87076; 87176; 87205; 88305; 88311; 93922; 93926; 99285; J0295; J0696; J1644; J2405; J2543; J2704; J3010; J0330; J1815; J2765; J7030

== ENCOUNTER → 2018-02-08 | Outpatient (CLI) | payer MEDICAID, OTHER ==
[~2018-02-08] MED LIST: ACET325T14 PO; AMLO5TAB2 PO; AMOX1TAB64 PO; ASPI-621 PO; ATOR40TA78 PO; ESOM20CA PO; INSU100I13 SQ-INSULIN; LACT1CAP24 PO; LOSA50TA6 PO; SIMV20TA PO
== END | disposition home or self-care (01) ==
LOC: WOUND 13:22
PROVIDERS: ATTEND Internal Medicine
DX: E11.621 Type 2 diabetes mellitus with foot ulcer (principal); L97.511 Non-pressure chronic ulcer of other part of right foot limited to breakdown of skin; E11.622 Type 2 diabetes mellitus with other skin ulcer; L97.212 Non-pressure chronic ulcer of right calf with fat layer exposed; E78.2 Mixed hyperlipidemia; E11.319 Type 2 diabetes mellitus with unspecified diabetic retinopathy without macular edema; E11.40 Type 2 diabetes mellitus with diabetic neuropathy, unspecified; E11.39 Type 2 diabetes mellitus with other diabetic ophthalmic complication; H40.9 Unspecified glaucoma; E11.22 Type 2 diabetes mellitus with diabetic chronic kidney disease; I12.9 Hypertensive chronic kidney disease with stage 1 through stage 4 chronic kidney disease, or unspecified chronic kidney disease; N18.4 Chronic kidney disease, stage 4 (severe); K21.9 Gastro-esophageal reflux disease without esophagitis; Z89.421 Acquired absence of other right toe(s); Z87.891 Personal history of nicotine dependence; Z98.42 Cataract extraction status, left eye; Z79.4 Long term (current) use of insulin; Z79.899 Other long term (current) drug therapy; Z79.82 Long term (current) use of aspirin
CPT/HCPCS: 97605; 99215

== ENCOUNTER → 2018-02-10 | Outpatient (CLI) | payer MEDICAID | END | disposition home or self-care (01) | LOC: WOUND 10:11 | PROVIDERS: ATTEND Internal Medicine | DX: E11.621 Type 2 diabetes mellitus with foot ulcer (principal); L97.511 Non-pressure chronic ulcer of other part of right foot limited to breakdown of skin; K21.9 Gastro-esophageal reflux disease without esophagitis; E78.5 Hyperlipidemia, unspecified; E11.22 Type 2 diabetes mellitus with diabetic chronic kidney disease; I12.9 Hypertensive chronic kidney disease with stage 1 through stage 4 chronic kidney disease, or unspecified chronic kidney disease; N18.4 Chronic kidney disease, stage 4 (severe); E11.40 Type 2 diabetes mellitus with diabetic neuropathy, unspecified; E11.51 Type 2 diabetes mellitus with diabetic peripheral angiopathy without gangrene; E11.319 Type 2 diabetes mellitus with unspecified diabetic retinopathy without macular edema; E11.39 Type 2 diabetes mellitus with other diabetic ophthalmic complication; H40.9 Unspecified glaucoma; Z89.421 Acquired absence of other right toe(s); Z87.891 Personal history of nicotine dependence; Z79.4 Long term (current) use of insulin; Z99.2 Dependence on renal dialysis | CPT/HCPCS: 97605 ==

== ENCOUNTER → 2018-02-17 | Outpatient (CLI) | payer MEDICAID, OTHER | END | disposition home or self-care (01) | LOC: WOUND 09:20 | PROVIDERS: ATTEND Internal Medicine | DX: E11.621 Type 2 diabetes mellitus with foot ulcer (principal); L97.513 Non-pressure chronic ulcer of other part of right foot with necrosis of muscle; E11.22 Type 2 diabetes mellitus with diabetic chronic kidney disease; I12.9 Hypertensive chronic kidney disease with stage 1 through stage 4 chronic kidney disease, or unspecified chronic kidney disease; N18.4 Chronic kidney disease, stage 4 (severe); E78.5 Hyperlipidemia, unspecified; E11.51 Type 2 diabetes mellitus with diabetic peripheral angiopathy without gangrene; E11.39 Type 2 diabetes mellitus with other diabetic ophthalmic complication; H40.9 Unspecified glaucoma; E11.40 Type 2 diabetes mellitus with diabetic neuropathy, unspecified; K21.9 Gastro-esophageal reflux disease without esophagitis; Z79.899 Other long term (current) drug therapy; Z99.2 Dependence on renal dialysis; Z79.82 Long term (current) use of aspirin; Z89.421 Acquired absence of other right toe(s); Z98.42 Cataract extraction status, left eye; Z87.891 Personal history of nicotine dependence; Z79.4 Long term (current) use of insulin; Z68.31 Body mass index [BMI] 31.0-31.9, adult | CPT/HCPCS: 97605 ==

== ENCOUNTER → 2018-02-19 | Outpatient (CLI) | payer MEDICAID, OTHER | END | disposition home or self-care (01) | LOC: WOUND 09:48 | PROVIDERS: ATTEND Family Medicine | DX: E11.621 Type 2 diabetes mellitus with foot ulcer (principal); L97.513 Non-pressure chronic ulcer of other part of right foot with necrosis of muscle; I10 Essential (primary) hypertension; E78.2 Mixed hyperlipidemia; K21.9 Gastro-esophageal reflux disease without esophagitis; E11.22 Type 2 diabetes mellitus with diabetic chronic kidney disease; I12.9 Hypertensive chronic kidney disease with stage 1 through stage 4 chronic kidney disease, or unspecified chronic kidney disease; N18.4 Chronic kidney disease, stage 4 (severe); E11.40 Type 2 diabetes mellitus with diabetic neuropathy, unspecified; E11.51 Type 2 diabetes mellitus with diabetic peripheral angiopathy without gangrene; E11.39 Type 2 diabetes mellitus with other diabetic ophthalmic complication; H40.9 Unspecified glaucoma; E11.36 Type 2 diabetes mellitus with diabetic cataract; Z89.421 Acquired absence of other right toe(s); Z87.891 Personal history of nicotine dependence; Z79.4 Long term (current) use of insulin; Z99.2 Dependence on renal dialysis | CPT/HCPCS: 97605 ==

== ENCOUNTER → 2018-02-22 | Outpatient (CLI) | payer MEDICAID, OTHER | END | disposition home or self-care (01) | LOC: WOUND 09:27 | PROVIDERS: ATTEND Internal Medicine | DX: E11.621 Type 2 diabetes mellitus with foot ulcer (principal); L97.513 Non-pressure chronic ulcer of other part of right foot with necrosis of muscle; E78.2 Mixed hyperlipidemia; E11.51 Type 2 diabetes mellitus with diabetic peripheral angiopathy without gangrene; E11.40 Type 2 diabetes mellitus with diabetic neuropathy, unspecified; K21.9 Gastro-esophageal reflux disease without esophagitis; E11.22 Type 2 diabetes mellitus with diabetic chronic kidney disease; I12.9 Hypertensive chronic kidney disease with stage 1 through stage 4 chronic kidney disease, or unspecified chronic kidney disease; N18.4 Chronic kidney disease, stage 4 (severe); E11.39 Type 2 diabetes mellitus with other diabetic ophthalmic complication; H40.9 Unspecified glaucoma; E11.319 Type 2 diabetes mellitus with unspecified diabetic retinopathy without macular edema; Z87.891 Personal history of nicotine dependence; Z89.421 Acquired absence of other right toe(s); Z99.2 Dependence on renal dialysis; Z79.4 Long term (current) use of insulin | CPT/HCPCS: 11042; 11045; 97605 ==

== ENCOUNTER → 2018-03-01 | Outpatient (CLI) | payer OTHER | END | disposition home or self-care (01) | LOC: WOUND 11:04 | PROVIDERS: ATTEND Internal Medicine | DX: E11.621 Type 2 diabetes mellitus with foot ulcer (principal); L97.513 Non-pressure chronic ulcer of other part of right foot with necrosis of muscle; I10 Essential (primary) hypertension; E78.2 Mixed hyperlipidemia; E11.51 Type 2 diabetes mellitus with diabetic peripheral angiopathy without gangrene; E11.40 Type 2 diabetes mellitus with diabetic neuropathy, unspecified; K21.9 Gastro-esophageal reflux disease without esophagitis; E11.39 Type 2 diabetes mellitus with other diabetic ophthalmic complication; H40.9 Unspecified glaucoma; E11.36 Type 2 diabetes mellitus with diabetic cataract; E11.319 Type 2 diabetes mellitus with unspecified diabetic retinopathy without macular edema; E11.22 Type 2 diabetes mellitus with diabetic chronic kidney disease; I12.9 Hypertensive chronic kidney disease with stage 1 through stage 4 chronic kidney disease, or unspecified chronic kidney disease; N18.4 Chronic kidney disease, stage 4 (severe); Z87.891 Personal history of nicotine dependence; Z99.2 Dependence on renal dialysis; Z79.4 Long term (current) use of insulin; Z89.421 Acquired absence of other right toe(s) | CPT/HCPCS: 11042; 11045; 97605 ==

== ENCOUNTER → 2018-03-08 | Outpatient (CLI) | payer OTHER | END | disposition home or self-care (01) | LOC: WOUND 10:17 | PROVIDERS: ATTEND Internal Medicine | DX: E11.621 Type 2 diabetes mellitus with foot ulcer (principal); L97.513 Non-pressure chronic ulcer of other part of right foot with necrosis of muscle; E78.2 Mixed hyperlipidemia; K21.9 Gastro-esophageal reflux disease without esophagitis; E11.22 Type 2 diabetes mellitus with diabetic chronic kidney disease; I13.10 Hypertensive heart and chronic kidney disease without heart failure, with stage 1 through stage 4 chronic kidney disease, or unspecified chronic kidney disease; N18.4 Chronic kidney disease, stage 4 (severe); E11.36 Type 2 diabetes mellitus with diabetic cataract; E66.9 Obesity, unspecified; E11.40 Type 2 diabetes mellitus with diabetic neuropathy, unspecified; E11.51 Type 2 diabetes mellitus with diabetic peripheral angiopathy without gangrene; E11.39 Type 2 diabetes mellitus with other diabetic ophthalmic complication; H40.9 Unspecified glaucoma; Z87.891 Personal history of nicotine dependence; Z89.421 Acquired absence of other right toe(s); Z68.31 Body mass index [BMI] 31.0-31.9, adult; Z99.2 Dependence on renal dialysis; Z79.4 Long term (current) use of insulin | CPT/HCPCS: 99213 ==